=== PATIENT | male | born 1955 | race Caucasian/White ===

== ENCOUNTER → 2018-08-13 | Outpatient (CLI) | payer OTHER | LOC: FIMAGING 14:04 | PROVIDERS: ATTEND Orthopaedic Surgery | DX: M17.12 Unilateral primary osteoarthritis, left knee (principal) ==

== ENCOUNTER 2018-08-25 09:13 | Observation (INO) | payer SELFPAY ==
[~2018-08-25 09:13] MED LIST: LIDOCAINE 2% 5 ML SDV ONE; PROPOFOL/EMULSION 500 MG/50 ML BOTTLE IV ONE; ROPIVACAINE 0.2% 80 MG, EPINEPHrine 0.2 MG, KETOROLAC TROMETHAMINE 30 MG in SYRINGE 0 ML IU ONE; ROPIVACAINE HCL 150 MG/30 ML INJ ONE; TRANEXAMIC ACID 3,000 MG in NS (SYRINGE) 50 ML IRR ONE
[2018-08-25] MEDS ORDERED: DEXAMETHASONE 4 MG/ML VIAL IVP ONE (09:17)
[2018-08-25] MEDS ORDERED: FAMOTIDINE 20 MG TAB PO ONE (09:17)
[2018-08-25] MEDS ORDERED: ACETAMINOPHEN 325 MG TAB PO ONE (09:17)
[2018-08-25] MEDS ORDERED: ceFAZolin 2 GM/DEXTROSE 100 ML IV ONE (09:17)
[2018-08-25] MEDS ORDERED: LIDOCAINE 1% 2 ML INJ ID PRN (09:18)
[2018-08-25] MEDS ORDERED: LR 1,000 ML IV ONE (09:18)
[2018-08-25] MEDS ORDERED: MIDAZOLAM 2 MG/2 ML VIAL ONE (09:54)
[2018-08-25] MEDS ORDERED: BUPIVACAINE/DEXTROSE 7.5MG/ML 2 ML SPINAL AMP SP ONE (10:00)
[2018-08-25] MEDS ORDERED: ACETAMINOPHEN 500 MG TAB PO PRN (10:21)
[2018-08-25] MEDS ORDERED: fentaNYL 100 MCG/2 ML INJ IVP PRN (10:21)
[2018-08-25] MEDS ORDERED: HYDROmorphONE/DILAUDID 1 MG/ML INJ IVP PRN (10:21)
[2018-08-25] MEDS ORDERED: ONDANSETRON 4 MG/2 ML VIAL IVP PRN ×2 (10:21→11:48)
[2018-08-25] MEDS ORDERED: LR 500 ML IV PRN (10:21)
[2018-08-25] MEDS ORDERED: HYDROCODONE/APAP 5/325 TAB PO PRN (10:21)
[2018-08-25] MEDS ORDERED: NALOXONE HCL 0.4 MG/ML INJ IVP PRN (10:21)
[2018-08-25] MEDS ORDERED: oxyCODONE IR 5 MG TAB PO PRN ×2 (10:21→11:48)
[2018-08-25] MEDS ORDERED: ALBUTEROL 3 ML DEYVIAL IH PRN (10:21)
[2018-08-25] MEDS ORDERED: MIDAZOLAM 2 MG/2 ML VIAL IVP ONE (10:44)
[2018-08-25] MEDS ORDERED: PROPOFOL 200 MG/20 ML VIAL ONE (11:04)
[2018-08-25] MEDS ORDERED: TEMAZEPAM 15 MG CAP PO PRN (11:48)
[2018-08-25] MEDS ORDERED: diphenhydrAMINE 25 MG CAP PO PRN (11:48)
[2018-08-25] MEDS ORDERED: LACTULOSE 20 GM/30 ML UDCUP PO PRN (11:48)
[2018-08-25] MEDS ORDERED: BISACODYL 10 MG SUPP PR PRN (11:48)
[2018-08-25] MEDS ORDERED: MAGNESIUM HYDROXIDE 30 ML UDCUP PO PRN (11:48)
[2018-08-25] MEDS ORDERED: DIPHENOXYLATE/ATROPINE LOMOTIL 1 TAB PO PRN (11:48)
[2018-08-25] MEDS ORDERED: ONDANSETRON DISINTEGRATING 4 MG TAB PO PRN (11:48)
[2018-08-25] MEDS ORDERED: CYCLOBENZAPRINE 10 MG TAB PO PRN (11:48)
[2018-08-25] MEDS ORDERED: PROMETHAZINE HCL 25 MG/ML INJ IVP PRN (11:48)
[2018-08-25] MEDS ORDERED: POLYETHYLENE GLYCOL 3350 17 GM PKT PO PRN (11:48)
[2018-08-25] MEDS ORDERED: PROMETHAZINE HCL 25 MG SUPPR PR PRN (11:48)
[2018-08-25] MEDS ORDERED: METOCLOPRAMIDE 10 MG/2 ML VIAL IVP PRN (11:48)
[2018-08-25] MEDS: LR 1,000 ML IV SCH (14:56)
[2018-08-25] MEDS: ACETAMINOPHEN 325 MG TAB PO SCH ×2 (18:37→23:57)
[2018-08-25] MEDS: ceFAZolin 2 GM/DEXTROSE 100 ML IV SCH (18:38)
[2018-08-25] MEDS: FAMOTIDINE 20 MG TAB PO SCH (20:59)
[2018-08-25] MEDS: SENNOSIDES/DOCUSATE SODIUM TAB PO SCH (20:59)
[2018-08-25] MEDS: ASPIRIN 81 MG CHEWABLE TAB PO SCH (20:59)
[2018-08-26] MEDS: LR 1,000 ML IV SCH (01:17)
[2018-08-26] MEDS: ceFAZolin 2 GM/DEXTROSE 100 ML IV SCH (02:53)
[2018-08-26] MEDS: ACETAMINOPHEN 325 MG TAB PO SCH (05:48)
[2018-08-26] MEDS: FAMOTIDINE 20 MG TAB PO SCH (08:37)
[2018-08-26] MEDS: ASPIRIN 81 MG CHEWABLE TAB PO SCH (08:40)
[2018-08-26] MEDS: SENNOSIDES/DOCUSATE SODIUM TAB PO SCH (08:40)
[2018-08-26] MEDS ORDERED: VENLAFAXINE XR 37.5 MG CAP PO SCH (09:00)
[2018-08-26] MEDS ORDERED: buPROPion XL 150 MG TAB PO SCH (09:00)
[2018-08-26] MEDS ORDERED: PANTOPRAZOLE SODIUM 40 MG TAB PO SCH (09:00)
== END 2018-08-26 11:12 | disposition home or self-care (01) ==
DX: M17.12 Unilateral primary osteoarthritis, left knee (principal)